=== PATIENT | male | born 1975 | race Two or more races ===

== ENCOUNTER 2023-07-25 22:20 | Emergency (ER) | payer SELFPAY ==
[~2023-07-25] VITALS: Ht 165.1 cm; Wt 71.6 kg
[2023-07-26] MEDS ORDERED: CYCL-839 PO (01:56)
[2023-07-26] MEDS ORDERED: IBUP1TAB5 PO (01:56)
[2023-07-26] MEDS: HYDROcodone-ACET 5/325MG TAB PO ONE (02:00)
[2023-07-26] MEDS: KETOROLAC TROMETH 60MG/2ML VIAL IM ONE (02:00)
[2023-07-26 02:52] VITALS: BP 173/96; PULSE 89; RESP 20; TEMP 98; O2SAT 97
== END 2023-07-26 03:00 | disposition home or self-care (01) ==
LOC: ER 22:20
DX: S63.591A Other specified sprain of right wrist, initial encounter (principal); S63.8X1A Sprain of other part of right wrist and hand, initial encounter; S33.5XXA Sprain of ligaments of lumbar spine, initial encounter; W01.0XXA Fall on same level from slipping, tripping and stumbling without subsequent striking against object, initial encounter; Y93.89 Activity, other specified; Y92.89 Other specified places as the place of occurrence of the external cause; Y99.8 Other external cause status
CPT/HCPCS: 29125; 72100; 73110; 73130; 96372; 99284; J1885